=== PATIENT | male | born 1975 | race African-American/Black ===

== ENCOUNTER 2017-07-26 15:01 | Emergency (ER) | payer OTHER ==
[~2017-07-26] VITALS: Ht 170.2 cm; Wt 79.4 kg
[~2017-07-26 15:01] MED LIST: AMOXICILLIN875 MG PO; HYDROCHLOROTHIA25 M1 PO; IBUPROFEN 800800 M1 PO; NORVASC5 MG PO; PROAIR HFA8.5 GM IH
[2017-07-26 15:02] VITALS: BP 156/101
[2017-07-26] MEDS ORDERED: FLONASE 0.05%50 MCG NASAL (15:29)
== END 2017-07-26 15:45 | disposition home or self-care (01) ==
LOC: ER 15:01
DX: J06.9 Acute upper respiratory infection, unspecified (principal); J01.90 Acute sinusitis, unspecified; I10 Essential (primary) hypertension